=== PATIENT | male | born 2000 | race Hispanic/Latino ===

== ENCOUNTER 2019-05-26 | Emergency (ER) | payer SELFPAY ==
[2019-05-26] MEDS ORDERED: PEPCID20 MG PO (17:42)
== END 2019-05-26 17:50 | disposition home or self-care (01) | DRG 392 ==
DX: R10.13 Epigastric pain (principal)

== ENCOUNTER 2019-06-22 | Emergency (ER) | payer SELFPAY ==
[~2019-06-22] MED LIST: PEPCID20 MG PO
[2019-06-22 17:20] LABS: HEMATOCRIT 42.6 % (39.0-50.0); HEMOGLOBIN 14.2 g/dl (14.0-18.0); IMMATURE GRANULOCYTES 0.4 % (0.0-5.0); MEAN CELL VOLUME 90.8 fL CALC (80.0-100.0); MEAN CORPUSCULAR HGB 30.3 pG CALC (26.0-32.0); MEAN CORPUSCULAR HGB CONC 33.3 g/dL CAL (32.0-36.0); NEUT# 4.36 thou/uL (1.82-7.42); RED BLOOD COUNT 4.69 mill/uL (4.70-6.10)
[2019-06-22 17:32] LABS: ALBUMIN 4.6 g/dL (3.2-5.0); ALKALINE PHOSPHATASE 93 u/l (38-126); ANION GAP 13 (6-22 (CALC)); BILIRUBIN, TOTAL 0.4 mg/dL (0.0-1.4); BUN 11 mg/dL (9-20); BUN/CREATININE RATIO 22 (12-20 (CALC)); CARBON DIOXIDE 27 mmol/l (22-30); CHLORIDE 102 mmol/l (95-108); CREATININE 0.5 mg/dL (0.7-1.3); GFR > 60 ML/MIN (>=60 (CALC)); GFR FOR AFR.AMER. > 60 ML/MIN (>=60 (CALC)); LIPASE 109 u/l (23-300); POTASSIUM 4.3 mmol/l (3.5-5.1); SGOT/AST 33 u/l (17-59); SODIUM 138 mmol/l (137-146); TOTAL PROTEIN 7.9 g/dL (6.3-8.2)
[2019-06-22] MEDS ORDERED: RANITIDINE150 M1 PO (19:27)
== END 2019-06-22 19:49 | disposition home or self-care (01) | DRG 392 ==
PROVIDERS: Family Medicine
DX: R10.13 Epigastric pain (principal)

== ENCOUNTER 2020-05-24 21:27 | Emergency (ER) | payer SELFPAY ==
[~2020-05-24] VITALS: Ht 165.1 cm; Wt 63.6 kg
[~2020-05-24 21:27] MED LIST changes: +RANITIDINE150 M1 PO
[2020-05-24] MEDS ORDERED: KEFLEX500 M1 PO (22:44)
[2020-05-24 23:15] VITALS: BP 136/93
== END 2020-05-24 23:15 | disposition home or self-care (01) | DRG 605 ==
LOC: ED 21:27
PROC: 0HQGXZZ Repair Left Hand Skin, External Approach (ICD-10-PCS; principal; 2020-05-24)
DX: S61.412A Laceration without foreign body of left hand, initial encounter (principal); W01.119A Fall on same level from slipping, tripping and stumbling with subsequent striking against unspecified sharp object, initial encounter; Y93.89 Activity, other specified; Y92.73 Farm field as the place of occurrence of the external cause; Y99.0 Civilian activity done for income or pay

== ENCOUNTER 2020-05-26 03:07 | Emergency (ER) | payer SELFPAY ==
[~2020-05-26] VITALS: Ht 165.1 cm; Wt 68.0 kg
[~2020-05-26 03:07] MED LIST changes: +KEFLEX500 M1 PO
[2020-05-26] MEDS ORDERED: PROTONIX40 M2 PO (04:19)
[2020-05-26 04:20] VITALS: BP 132/66
== END 2020-05-26 04:30 | disposition home or self-care (01) | DRG 392 ==
LOC: ED 03:07
DX: R10.13 Epigastric pain (principal)

== ENCOUNTER 2020-06-03 19:37 | Emergency (ER) | payer SELFPAY ==
[~2020-06-03] VITALS: Ht 165.1 cm; Wt 61.0 kg
[~2020-06-03 19:37] MED LIST changes: +PROTONIX40 M2 PO
[2020-06-03 20:26] VITALS: BP 118/57
== END 2020-06-03 20:26 | disposition home or self-care (01) | DRG 950 ==
LOC: ED 19:37
DX: S61.412D Laceration without foreign body of left hand, subsequent encounter (principal); X58.XXXD Exposure to other specified factors, subsequent encounter